=== PATIENT | female | born 1975 | race Two or more races ===

== ENCOUNTER 2018-10-20 06:04 | Inpatient (IN) | payer OTHER ==
[2018-10-19 08:02] VITALS: BMI 27.3
[2018-10-20 06:35] LABS: URINE APPEARANCE SLCLOUDY; URINE BILIRUBIN NEGATIVE (<2.0 mg/dL); URINE COLOR YELLOW; URINE GLUCOSE (UA) NEGATIVE (NEGATIVE); URINE KETONE NEGATIVE (NEGATIVE); URINE LEUK ESTERASE NEGATIVE (NEGATIVE); URINE NITRITE NEGATIVE (NEGATIVE); URINE PROTEIN NEGATIVE (NEGATIVE); URINE UROBILINOGEN NEGATIVE mg/dL (0.2-1.0)
[2018-10-20] MEDS ORDERED: PROPOFOL 20 ML ONE (07:31)
[2018-10-20] MEDS ORDERED: ROCURONIUM BROMIDE 50 MG/5 ML VIAL ONE ×3 (07:31→10:57)
[2018-10-20] MEDS ORDERED: SUCCINYLCHOLINE CHLORIDE 200 MG/10 ML VIAL ONE (07:31)
[2018-10-20] MEDS ORDERED: MIDAZOLAM HCL 2 MG/2 ML SINGLE DOSE VIAL ONE (07:33)
--- NOTE | 2018-10-20 07:57 | HP ---
History & Physical Update - History History: No Change - Physical Physical: No Change - Assessment Assessment: No Change - Plan Plan: No Change (NO changes since visit on 10/14/18)
[2018-10-20] MEDS ORDERED: morphine SULFATE/Preservative Free 0.5 MG/ML (1cc Syringe) ONE (08:02)
[2018-10-20] MEDS ORDERED: LIDOCAINE 1%-EPI 1:100,000 30 ML MDV IJ ONE (08:03)
[2018-10-20] MEDS ORDERED: THROMBIN (BOVINE) 5,000 UNIT VIAL TP ONE ×2 (08:03→09:23)
[2018-10-20] MEDS ORDERED: GENTAMICIN SO4 80 MG/2 ML VIAL ONE (08:03)
[2018-10-20] MEDS ORDERED: DESFLURANE GAS 240 ML BOTTLE IH ONE (08:11)
[2018-10-20] MEDS ORDERED: ceFAZolin SODIUM 1 GM VIAL IVPB ONE (08:50)
[2018-10-20] MEDS ORDERED: VANCOMYCIN 1,000 MG VIAL (RESTRICTED TO ID ONLY) IVPB ONE ×2 (09:00→09:23)
[2018-10-20] MEDS ORDERED: LIDOCAINE 1%/EPI 1:100000 (50 ML MULTI DOSE VIAL) NR ONE (09:03)
[2018-10-20] MEDS ORDERED: GELATIN, ABSORBABLE 12-7MM EACH SPONGE TP ONE (09:23)
[2018-10-20] MEDS ORDERED: BACITRACIN 50,000 UNITS VIAL TP ONE ×2 (09:23)
[2018-10-20] MEDS ORDERED: HYDROGEN PEROXIDE 473 ML PO ONE (09:23)
[2018-10-20] MEDS ORDERED: GENTAMICIN SO4 80 MG/2 ML VIAL IVPB ONE (09:23)
[2018-10-20] MEDS ORDERED: VANCOMYCIN 1,000 MG VIAL (RESTRICTED TO ID ONLY) ONE (09:36)
[2018-10-20] MEDS ORDERED: fentaNYL CITRATE 250 MCG/5 ML VIAL ONE (09:58)
[2018-10-20] MEDS ORDERED: GLYCOPYRROLATE 0.2 MG/1 ML VIAL ONE ×2 (11:21)
[2018-10-20] MEDS ORDERED: NEOSTIGMINE METHYLSULFATE 0.5 MG/1 ML - 10 ML MDV ONE (11:21)
[2018-10-20] MEDS ORDERED: BUPIVACAINE LIPOSOME/PF (EXPAREL) 266 MG/20 ML VIAL NR ONE (11:26)
[2018-10-20] MEDS ORDERED: BUPIVACAINE HCL/PF (5 MG/ML) 30 ML VIAL IJ ONE (11:26)
[2018-10-20] MEDS ORDERED: oxyCODONE HCL 5 MG TABLET PO PRN ×3 (12:12→12:26)
[2018-10-20] MEDS ORDERED: ONDANSETRON 4 MG/2 ML VIAL IVPUSH PRN (12:12)
[2018-10-20] MEDS ORDERED: ACETAMINOPHEN 1000 MG/100 ML VIAL (NON FORMULARY) IVPB ONE (12:18)
[2018-10-20] MEDS ORDERED: diphenhydrAMINE HCL 25 MG CAPSULE (FP) PO PRN (12:26)
[2018-10-20] MEDS ORDERED: morphine SULFATE 4 MG/ML VIAL IVPUSH PRN (12:26)
[2018-10-20] MEDS ORDERED: ACETAMINOPHEN INJECTION 100 ML IVPB ONE (13:11)
--- NOTE | 2018-10-20 13:27 | OP ---
Operative Note - Note: Operative Date: 10/20/18 Pre-Operative Diagnosis: Lumbar instability Operation: L5-S1 Lumbar decompression, laminectomy with transpedicle approach for interbody cage and arthrodesis with L5S1 posterior fusion. Post-Operative Diagnosis: Same as Pre-op Surgeon: Nazario Humphreys Dental Service Technician: Cathryn Mendoza Anesthesiologist/RUSSIAN TEACHER: Chino Naranjo Anesthesia: General, Spinal, Local Estimated Blood Loss (mls): 250 Drains, Volume Out (mls): 80 ([place] ) Fluid Volume Replaced (mls): 1,800 Operative Report Dictated: Yes
[2018-10-20] MEDS: LACTATED RINGERS SOLUTION 1,000 ML/1,000 ML INFUS.BAG IV SCH (13:30)
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
[2018-10-20] MEDS: DOCUSATE SODIUM 100 MG CAPSULE (FP) PO SCH ×2 (17:14→21:33)
[2018-10-20] MEDS: CEFAZOLIN 1 GM/D5W 1 GM/50 ML BAG IVPB SCH (17:20)
[2018-10-20] MEDS: ONDANSETRON 4 MG/2 ML VIAL IVPUSH PRN (18:16)
[2018-10-20] MEDS: HEPARIN NA (PORCINE) 5,000 UNITS/ML 1ML VIAL SQ SCH (21:34)
[2018-10-21] MEDS: CEFAZOLIN 1 GM/D5W 1 GM/50 ML BAG IVPB SCH ×3 (00:58→19:17)
[2018-10-21] MEDS: LACTATED RINGERS SOLUTION 1,000 ML/1,000 ML INFUS.BAG IV SCH ×3 (01:00→13:09)
[2018-10-21] MEDS ORDERED: oxyCODONE HCL 5 MG TABLET ONE (04:32)
[2018-10-21] MEDS ORDERED: ACETAMINOPHEN 325 MG TABLET (FP) PO ONE (04:45)
[2018-10-21] MEDS ORDERED: oxyCODONE HCL 5 MG TABLET PO ONE (04:45)
[2018-10-21] MEDS: HEPARIN NA (PORCINE) 5,000 UNITS/ML 1ML VIAL SQ SCH ×3 (06:05→21:31)
[2018-10-21] MEDS: DOCUSATE SODIUM 100 MG CAPSULE (FP) PO SCH ×3 (06:05→21:31)
[2018-10-21 07:19] LABS: HEMATOCRIT 29.2 % (32.4-45.2); HEMOGLOBIN 9.7 GM/dL (10.7-15.3); MCH 26.2 pg (25.7-33.7); MEAN CELL VOLUME 79.2 fl (80-96); MEAN PLT VOLUME 8.8 fl (7.5-11.1); PLATELET COUNT 142 K/MM3 (134-434); RBC 3.69 M/mm3 (3.60-5.2); RDW 13.7 % (11.6-15.6); WHITE BLOOD COUNT 7.2 K/mm3 (4.0-10.0)
[2018-10-21 07:46] LABS: ANION GAP 4 MMOL/L (8-16); BLOOD UREA NITROGEN 9 mg/dL (7-18); CALCIUM 8.1 mg/dL (8.5-10.1); CHLORIDE 106 mmol/L (98-107); CO2 27 mmol/L (21-32); CREATININE 0.6 mg/dL (0.55-1.3); GLUCOSE,RANDOM 94 mg/dL (74-106); POTASSIUM 4.3 mmol/L (3.5-5.1); SODIUM 137 mmol/L (136-145)
--- NOTE | 2018-10-21 08:18 | PN ---
Progress Note, Physician Chief Complaint: s/p L5S1 decompression instrumentation under general anesthesia post op day one History of Present Illness: duramorph and safety pin assembling machine operator for post op pain control - Current Medication List Current Medications: Active Medications Diphenhydramine HCl (Benadryl -) 25 mg PO Q6H PRN PRN Reason: FOR ITCHING Docusate Sodium (Colace -) 100 mg PO TID [facility] Last Admin: 10/21/18 06:05 Dose: 100 mg Ferrous Sulfate (Feosol -) 325 mg PO DAILY [facility] Folic Acid (Folic Acid -) 1 mg PO DAILY [facility] Heparin Sodium (Porcine) (Heparin -) 5,000 unit SQ TID [facility] Last Admin: 10/21/18 06:05 Dose: 5,000 unit Hydromorphone HCl (Dilaudid Construction Plant Operator -) 0 mg KNOCKUP WORKER KNOCKUP WORKER [facility]; Protocol Stop: 10/27/18 12:19 Cefazolin Sodium (Ancef 1 Gm Premixed Ivpb -) 1 gm in 50 mls @ 100 mls/hr IVPB Q8H-IV [facility] Lactated Ringer's (Lactated Ringers Solution) 1,000 ml in 1,000 mls @ 125 mls/ hr IV ASDIR [facility] Last Admin: 10/21/18 01:00 Dose: 125 mls/hr Cefazolin Sodium (Ancef 1 Gm Premixed Ivpb -) 1 gm in 50 mls @ 100 mls/hr IVPB Q8H [facility] Stop: 10/21/18 16:59 Last Admin: 10/21/18 00:58 Dose: 100 mls/hr Ondansetron HCl (Zofran Injection) 4 mg IVPUSH Q6H PRN PRN Reason: NAUSEA Last Admin: 10/20/18 18:16 Dose: 4 mg - Objective Vital Signs: Vital Signs Temperature 98.9 F 10/21/18 06:00 Pulse Rate 70 10/21/18 06:00 Respiratory Rate 18 10/21/18 06:00 Blood Pressure 103/69 10/21/18 06:00 O2 Sat by Pulse Oximetry (%) 99 10/20/18 21:00 Constitutional: Yes: Well Nourished Cardiovascular: Yes: WNL Respiratory: Yes: WNL Gastrointestinal: Yes: WNL Labs: CBC, BMP 10/21/18 06:45 10/21/18 06:45 Assessment/Plan Patient pain controlled, will start KNOCKUP WORKER this AM, stop as soon as patient is able to tolerate PO, No nausea or vomiting this AM. No adverse effects from anesthetic. Dept of anesthesiology will continue to monitor KNOCKUP WORKER
[2018-10-21] MEDS ORDERED: morphine SULFATE 4 MG/ML VIAL IVPUSH PRN (09:00)
[2018-10-21] MEDS ORDERED: oxyCODONE HCL 5 MG TABLET PO PRN (09:00)
[2018-10-21] MEDS: FOLIC ACID 1 MG TABLET (FP) PO SCH (09:21)
[2018-10-21] MEDS: FERROUS SO4 325 MG TABLET (FP) PO SCH (09:21)
[2018-10-21] MEDS ORDERED: HYDROmorphone *PCA* 10MG/50ML DISP.SYRIN PCA ONE (09:55)
[2018-10-21] MEDS: HYDROmorphone *PCA* 10MG/50ML DISP.SYRIN PCA SCH (10:00)
--- NOTE | 2018-10-21 10:23 | PN ---
Progress Note (short form) - Note Progress Note: surgery POD #1 L5-S1 decompression and fusion patient seen and examined at bedside. Patient states her pain was controlled overnight but her pain has been worsening as the spinal is wearing off. She is tolerating her diet and denies any CP, SOB, N/V/D fever or chills. Vital Signs Temp 98.5 F 10/21/18 10:00 Pulse 76 10/21/18 10:00 Resp 18 10/21/18 10:00 BP 134/67 10/21/18 10:00 Pulse Ox 99 10/20/18 21:00 Intake & Output 10/20/18 10/20/18 10/21/18 11:59 23:59 11:59 Intake Total 0078 053 5128 Output Total 330 1160 760 Balance 1470 -685 740 Intake: IV 8895 166 5658 LACTATED RINGERS SOLUTION 1450 1,000 ml In 1,000 ml @ 125 mls/hr IV ASDIR [facility] Rx#:[id number] IVPB 50 Output: Drainage 160 60 Lower Back 130 60 Urine 80 1000 700 Geronimo 600 700 Estimated Blood Loss 250 Other: Voiding Method Indwelling Catheter Bowel Movement No CBC, BMP 10/21/18 06:45 10/21/18 06:45 PE: A&Ox3, NAD unlabored resp on RA Incision dressing c/d/i with surrounding tissue intact, no edema, or tracking erythema, no evidence of d/c. Drain securely in place at right paravetebral lumbar spine. B/L LE compartments soft, supple and non-tender with +2 DP pulses and 5/5 dorsi/ plantar flexion. Problem List - Problems (1) Status post lumbar spine operative procedure for decompression of spinal cord Assessment/Plan: POD #1 L5-S1 decompression and fusion doing well. 1) d/c geronimo 2) OOb with PT WBAT in TLSO brace 3) DVT and GI prophylaxis 4) encourage IS Evaluation and plan discussed with Dr Humphreys Code(s): Z98.890 - OTHER SPECIFIED POSTPROCEDURAL STATES
--- NOTE | 2018-10-21 13:05 | PN ---
Progress Note, Physician Chief Complaint: Lumbar Instablility S/p L5-S1 decompression and fusion History of Present Illness: Previous notes and events reviewed awake and alert NAD c/o nausea pain controlled with EXECUTIVE ASST pump - Current Medication List Current Medications: Active Medications Diphenhydramine HCl (Benadryl -) 25 mg PO Q6H PRN PRN Reason: FOR ITCHING Docusate Sodium (Colace -) 100 mg PO TID [facility] Last Admin: 10/21/18 06:05 Dose: 100 mg Ferrous Sulfate (Feosol -) 325 mg PO DAILY [facility] Last Admin: 10/21/18 09:21 Dose: 325 mg Folic Acid (Folic Acid -) 1 mg PO DAILY [facility] Last Admin: 10/21/18 09:21 Dose: 1 mg Heparin Sodium (Porcine) (Heparin -) 5,000 unit SQ TID [facility] Last Admin: 10/21/18 06:05 Dose: 5,000 unit Hydromorphone HCl (Dilaudid Gold And Silver Assayer -) 0 mg EXECUTIVE ASST EXECUTIVE ASST [facility]; Protocol Stop: 10/27/18 12:19 Cefazolin Sodium (Ancef 1 Gm Premixed Ivpb -) 1 gm in 50 mls @ 100 mls/hr IVPB Q8H-IV [facility] Last Admin: 10/21/18 09:21 Dose: 100 mls/hr Lactated Ringer's (Lactated Ringers Solution) 1,000 ml in 1,000 mls @ 125 mls/ hr IV ASDIR [facility] Last Admin: 10/21/18 09:23 Dose: 125 mls/hr Ondansetron HCl (Zofran Injection) 4 mg IVPUSH Q6H PRN PRN Reason: NAUSEA Last Admin: 10/20/18 18:16 Dose: 4 mg - Objective Vital Signs: Vital Signs Temperature 98.5 F 10/21/18 10:00 Pulse Rate 76 10/21/18 10:00 Respiratory Rate 18 10/21/18 10:00 Blood Pressure 134/67 10/21/18 10:00 O2 Sat by Pulse Oximetry (%) 99 10/20/18 21:00 Constitutional: Yes: No Distress, Calm Eyes: Yes: Conjunctiva Clear HENT: Yes: Atraumatic Cardiovascular: Yes: Regular Rate and Rhythm Respiratory: Yes: Regular, CTA Bilaterally Gastrointestinal: Yes: Normal Bowel Sounds, Soft, Other (non tender) Genitourinary: Yes: [place] Present Musculoskeletal: Yes: WNL Extremities: Yes: WNL Edema: No Neurological: Yes: Alert, Oriented Psychiatric: Yes: Alert, Oriented Labs: CBC, BMP 10/21/18 06:45 10/21/18 06:45 Problem List - Problems (1) Status post lumbar spine operative procedure for decompression of spinal cord Assessment/Plan: -POD#1 L5-S1 decompression and fusion with interbody cage and pedicle screws -pain management with EXECUTIVE ASST pump -incentive spirometer -O2 via NC PRN for SOB -back brace as ordered -cefazolin IV -discontinue FC Code(s): Z98.890 - OTHER SPECIFIED POSTPROCEDURAL STATES (2) Nausea Assessment/Plan: -continue with zofran Code(s): R11.0 - NAUSEA
[2018-10-21] MEDS: ONDANSETRON 4 MG/2 ML VIAL IVPUSH PRN (13:10)
[2018-10-21] MEDS ORDERED: PT OWN MED DRAWER 7, Y5N ONE (13:22)
[2018-10-22] MEDS: CEFAZOLIN 1 GM/D5W 1 GM/50 ML BAG IVPB SCH ×3 (01:52→18:15)
[2018-10-22] MEDS: HEPARIN NA (PORCINE) 5,000 UNITS/ML 1ML VIAL SQ SCH ×3 (06:06→21:39)
[2018-10-22] MEDS: DOCUSATE SODIUM 100 MG CAPSULE (FP) PO SCH ×3 (06:06→21:39)
[2018-10-22] MEDS: LACTATED RINGERS SOLUTION 1,000 ML/1,000 ML INFUS.BAG IV SCH (06:39)
--- NOTE | 2018-10-22 08:39 | PN ---
Progress Note (short form) - Note Progress Note: Patient stable c/o pain score of 5-6/10 on Dilaudid DISTRIBUTING CLERK .Will continue DISTRIBUTING CLERK today and will f/u tomorrow.
--- NOTE | 2018-10-22 08:45 | PN ---
Progress Note, Physician Chief Complaint: AWAKE ALERT EVENTS AND NOTES REVIEWED NO BM YET HAS NOT PASSED FLATUS PAIN 11/11 - Current Medication List Current Medications: Active Medications Diphenhydramine HCl (Benadryl -) 25 mg PO Q6H PRN PRN Reason: FOR ITCHING Docusate Sodium (Colace -) 100 mg PO TID [facility] Last Admin: 10/22/18 06:06 Dose: 100 mg Ferrous Sulfate (Feosol -) 325 mg PO DAILY [facility] Last Admin: 10/21/18 09:21 Dose: 325 mg Folic Acid (Folic Acid -) 1 mg PO DAILY [facility] Last Admin: 10/21/18 09:21 Dose: 1 mg Heparin Sodium (Porcine) (Heparin -) 5,000 unit SQ TID [facility] Last Admin: 10/22/18 06:06 Dose: 5,000 unit Hydromorphone HCl (Dilaudid Nodulizer -) 0 mg LOCK TENDER CHIEF OPERATOR LOCK TENDER CHIEF OPERATOR [facility]; Protocol Stop: 10/27/18 12:19 Last Admin: 10/21/18 10:00 Dose: 10 mg Cefazolin Sodium (Ancef 1 Gm Premixed Ivpb -) 1 gm in 50 mls @ 100 mls/hr IVPB Q8H-IV [facility] Last Admin: 10/22/18 01:52 Dose: 100 mls/hr Lactated Ringer's (Lactated Ringers Solution) 1,000 ml in 1,000 mls @ 125 mls/ hr IV ASDIR [facility] Last Admin: 10/22/18 06:39 Dose: 125 mls/hr Ondansetron HCl (Zofran Injection) 4 mg IVPUSH Q6H PRN PRN Reason: NAUSEA Last Admin: 10/21/18 13:10 Dose: 4 mg - Objective Vital Signs: Vital Signs Temperature 99.8 F H 10/22/18 04:00 Pulse Rate 85 10/22/18 04:00 Respiratory Rate 18 10/22/18 04:00 Blood Pressure 117/75 10/22/18 04:00 O2 Sat by Pulse Oximetry (%) 99 10/20/18 21:00 Constitutional: Yes: Mild Distress Cardiovascular: Yes: Regular Rate and Rhythm Respiratory: Yes: WNL Gastrointestinal: Yes: Soft Genitourinary: Yes: WNL Musculoskeletal: Yes: Back Pain, Muscle Weakness Labs: CBC, BMP 10/21/18 06:45 10/21/18 06:45 Problem List - Problems (1) Constipated Code(s): K59.00 - CONSTIPATION, UNSPECIFIED (2) Nausea Code(s): R11.0 - NAUSEA (3) Status post lumbar spine operative procedure for decompression of spinal cord Code(s): Z98.890 - OTHER SPECIFIED POSTPROCEDURAL STATES Assessment/Plan OOB TO CHAIR PT EVAL APPRECIATED INCENTIVE SPIROMETRY CONSTIPATION SECONDARY TO OPIOD/PAIN MEDICATION SIDE EFFECT DC PLANNING TOMORROW NEURO SURGERY EVAL APPRECIATED
[2018-10-22] MEDS ORDERED: oxyCODONE HCL 5 MG TABLET PO PRN ×2 (09:36)
[2018-10-22 09:48] LABS: HEMATOCRIT 30.8 % (32.4-45.2); HEMOGLOBIN 10.5 GM/dL (10.7-15.3); MCH 27.3 pg (25.7-33.7); MEAN CELL VOLUME 80.3 fl (80-96); MEAN PLT VOLUME 9.3 fl (7.5-11.1); PLATELET COUNT 140 K/MM3 (134-434); RBC 3.84 M/mm3 (3.60-5.2); RDW 13.8 % (11.6-15.6); WHITE BLOOD COUNT 8.6 K/mm3 (4.0-10.0)
--- NOTE | 2018-10-22 09:56 | PN ---
Progress Note (short form) - Note Progress Note: 43yo F s/p L5/s1 PLIF seen and examined at bedside. Pt states that her pain is well controlled and she has been ambulating well with PT. Pt eating and urinating well. Pt only complains of constipation. Denies fever, chills, n/v. Last Vital Signs Temp Pulse Resp BP Pulse Ox 99.8 F H 85 18 117/75 99 10/22/18 04:00 10/22/18 04:00 10/22/18 04:00 10/22/18 04:00 10/20/18 21:00 CBC, BMP 10/22/18 08:42 PE: GeN; a&O x3 Resp: breathing comfortably Back: incision clean with no erythema or discharge, Drain in place with serosanguinous drainage Output: 60ml Ext: no weakness or numbness. Problem List - Problems (1) Status post lumbar spine operative procedure for decompression of spinal cord Assessment/Plan: Plan -will DC environmental conflict manager and transition to PO -Drain removed at bedside without incident -pt appears to be doing well, is cleared from neurosurgery standpoint for discharge Code(s): Z98.890 - OTHER SPECIFIED POSTPROCEDURAL STATES
[2018-10-22] MEDS: FERROUS SO4 325 MG TABLET (FP) PO SCH (10:48)
[2018-10-22] MEDS: FOLIC ACID 1 MG TABLET (FP) PO SCH (10:48)
[2018-10-22] MEDS: HYDROmorphone *PCA* 10MG/50ML DISP.SYRIN PCA SCH (10:53)
[2018-10-22 11:23] LABS: ALK PHOS 49 U/L (45-117); ANION GAP 6 MMOL/L (8-16); BILIRUBIN,TOTAL 0.3 mg/dL (0.2-1); BLOOD UREA NITROGEN 4 mg/dL (7-18); CALCIUM 8.3 mg/dL (8.5-10.1); CHLORIDE 101 mmol/L (98-107); CO2 27 mmol/L (21-32); CREATININE 0.5 mg/dL (0.55-1.3); GLUCOSE,RANDOM 97 mg/dL (74-106); POTASSIUM 4.1 mmol/L (3.5-5.1); SGOT/AST 6 U/L (15-37); SGPT/ALT 10 U/L (13-61); SODIUM 134 mmol/L (136-145); TOT PROT 6.2 g/dl (6.4-8.2)
[2018-10-23] MEDS: CEFAZOLIN 1 GM/D5W 1 GM/50 ML BAG IVPB SCH ×2 (01:30→09:58)
[2018-10-23] MEDS: HEPARIN NA (PORCINE) 5,000 UNITS/ML 1ML VIAL SQ SCH ×2 (06:11→13:59)
[2018-10-23] MEDS: DOCUSATE SODIUM 100 MG CAPSULE (FP) PO SCH ×2 (06:12→13:58)
[2018-10-23 07:40] LABS: HEMATOCRIT 31.5 % (32.4-45.2); HEMOGLOBIN 10.8 GM/dL (10.7-15.3); MCH 27.2 pg (25.7-33.7); MCHC 34.3 g/dl (32.0-36.0); MEAN CELL VOLUME 79.3 fl (80-96); MEAN PLT VOLUME 9.4 fl (7.5-11.1); PLATELET COUNT 160 K/MM3 (134-434); RBC 3.97 M/mm3 (3.60-5.2); WHITE BLOOD COUNT 9.6 K/mm3 (4.0-10.0)
[2018-10-23 08:23] LABS: ANION GAP 6 MMOL/L (8-16); BLOOD UREA NITROGEN 4 mg/dL (7-18); CALCIUM 8.6 mg/dL (8.5-10.1); CHLORIDE 102 mmol/L (98-107); CO2 25 mmol/L (21-32); CREATININE 0.4 mg/dL (0.55-1.3); GLUCOSE,RANDOM 99 mg/dL (74-106); MAGNESIUM 2.1 mg/dL (1.8-2.4); POTASSIUM 4.1 mmol/L (3.5-5.1); SODIUM 134 mmol/L (136-145)
--- NOTE | 2018-10-23 09:03 | PN ---
Progress Note (short form) - Note Progress Note: POD 3, s/p L5/S1 PLIF Pt seen and examined on AM rounds. States she is feeling well. Has been oob to chair, reports pain is less with walking and standing. Tolerating PO. Pain is controlled. Denies cp/sob, n/v/d, calf pain/edema. Vital Signs Temp 98.3 F 10/23/18 10:00 Pulse 92 H 10/23/18 10:00 Resp 18 10/23/18 10:00 BP 124/69 10/23/18 10:00 Pulse Ox 100 10/23/18 09:00 Intake & Output 10/22/18 10/23/18 10/23/18 23:59 11:59 23:59 Intake Total 200 380 Balance 200 380 Intake: IVPB 200 50 Oral 330 Other: Voiding Method Toilet Toilet # Unmeasured Voids Void 2 Bowel Movement Yes No # Bowel Movements 1 CBC, BMP 10/23/18 06:30 10/23/18 06:30 PE: GeN: a&O x3 sitting up in chair Resp: breathing comfortably Back:Dressing c/d/i Neuro: 5/5 b/l le dorsi/plantatflexion, knee flex/ext, hip flexion. SILT b/l A/P: 43 y/o F w/ PMHx lower back pain/lumbar instability, now POD 3, s/p L5/S1 PLIF. -Doing well this AM, Afebrile, VSS. -Plan for d/c later today
[2018-10-23] MEDS: FERROUS SO4 325 MG TABLET (FP) PO SCH (09:58)
[2018-10-23] MEDS: FOLIC ACID 1 MG TABLET (FP) PO SCH (09:58)
[2018-10-23 12:27] VITALS: BP 124/69; PULSE 92; TEMP 98.3
--- NOTE | 2018-10-23 14:59 | DS ---
Physical Examination Vital Signs: Vital Signs Temperature 98.3 F 10/23/18 10:00 Pulse Rate 92 H 10/23/18 10:00 Respiratory Rate 18 10/23/18 10:00 Blood Pressure 124/69 10/23/18 10:00 O2 Sat by Pulse Oximetry (%) 100 10/23/18 09:00 Constitutional: Yes: No Distress Eyes: Yes: WNL HENT: Yes: WNL Neck: Yes: WNL Cardiovascular: Yes: Bruit Respiratory: Yes: WNL Gastrointestinal: Yes: WNL Renal/: Yes: WNL Musculoskeletal: Yes: Back Pain Edema: No Labs: CBC, BMP 10/23/18 06:30 10/23/18 06:30 Discharge Summary Reason For Visit: LUMBAR INSTABILITY Current Active Problems Constipated (Acute) Nausea (Acute) Status post lumbar spine operative procedure for decompression of spinal cord ( Acute) Procedures: Principal: DECOMPRESSION LUMBAR SURGERY Condition: Fair - Instructions Diet, Activity, Other Instructions: Post Operative Instructions Physical Activity Resume your normal everyday activity as tolerated. No heavy lifting or exercise until seen by your surgeon. You may walk unlimited amounts and climb stairs. You may resume driving the car when you feel safe and comfortable behind the wheel and you are no longer wearing your brace. Do not operate a vehicle while taking narcotic medication. Brace If you had back surgery, wear TLSO Brace whenever out of bed. May remove to sleep and shower. Wound Care Keep your incision clean, dry and covered at all times. Apply an occlusive dressing (Saran wrap or Tegaderm) when showering to avoid getting your incision wet. Do not submerge incision or apply ointments or creams. The tanisha will be removed in the office in 10-14 days post-op. Diet There are no dietary restrictions. Eat healthy, high-fiber foods. Drink 6-8 glasses of liquid each day. This will assist in keeping your bowels regular. Pain Management You may take Tylenol or acetaminophen. Any pain prescription medication ordered should be taken as prescribed for moderate to severe pain. Call Dr Niño for any of the following: Severe pain not relieved by medication Fever of 101 or higher Excessive bleeding or drainage on dressing Inability to urinate Any chest pain or shortness of breath, seek Emergency Care. Call the office to confirm a post-operative appointment for 2-3 weeks post-op Nazario Humphreys MD [facility] [address] [place] [address] Disposition: HOME - Home Medications Comprehensive Discharge Medication List: Ambulatory Orders Cyclobenzaprine HCl [Flexeril -] 10 mg PO HS #30 tablet 10/23/18 Diphenhydramine HCl [Benadryl Capsule -] 25 mg PO Q6H PRN #30 capsule 10/23/18 Docusate Sodium [Colace -] 100 mg PO TID #90 capsule 10/23/18 Ferrous Sulfate [Feosol] 325 mg PO DAILY #30 ud 10/23/18 Folic Acid - 1 mg PO DAILY #30 tablet 10/23/18 Ibuprofen 800 mg PO BID #60 tablet 10/23/18 Ibuprofen [Ibu] 800 mg PO BID #60 tablet 10/23/18
[2018-10-23] MEDS: HYDROmorphone *PCA* 10MG/50ML DISP.SYRIN PCA SCH (16:28)
--- NOTE | 2018-10-29 15:54 | SURG ---
Surgery Cadd Manager Note Cadd Manager: Cathryn Mendoza PA-C Date of Service: 10/29/18 Diagnosis: L5-S1 Disc herniation and instability Procedure: 1) Bilateral L5S1 Laminectomy 2) L5S1 Transpedicle approach 3) Posterior osteotomy L5 4) Posterior osteotomy S1 5) Fluroscopy 6) microdissection 7) Interbody and posterior/lateral arthrodesis L5S1 8) L5S1 posterior instrumentation ( Technically challenging) 9) local autograft 10) Interbody cage L5S1 11) Bilateral soft tissue advancement flaps (50cm^2) I was present for the entirety of the operative procedure. For further detail, please refer to operative report.
== END 2018-10-23 18:23 | disposition home or self-care (01) | DRG 455 ==
LOC: JSAMEDAYSX 06:04 → J8W 16:31
PROVIDERS: ADMIT Neurological Surgery; ATTEND Family Medicine
PROC: 0SG3071 Fusion of Lumbosacral Joint with Autologous Tissue Substitute, Posterior Approach, Posterior Column, Open Approach (ICD-10-PCS; 2018-10-20)
PROC: 00NY0ZZ Release Lumbar Spinal Cord, Open Approach (ICD-10-PCS; 2018-10-20)
PROC: B01BZZZ Fluoroscopy of Spinal Cord (ICD-10-PCS; 2018-10-20)
PROC: 0JX70ZB Transfer Back Subcutaneous Tissue and Fascia with Skin and Subcutaneous Tissue, Open Approach (ICD-10-PCS; 2018-10-20)
PROC: 0SG30AJ Fusion of Lumbosacral Joint with Interbody Fusion Device, Posterior Approach, Anterior Column, Open Approach (ICD-10-PCS; principal; 2018-10-20 08:00)
DX: M51.27 Other intervertebral disc displacement, lumbosacral region (principal); M53.2X7 Spinal instabilities, lumbosacral region; K59.00 Constipation, unspecified; R11.0 Nausea
CPT/HCPCS: 36415; 72131-TC; 80048; 80053; 81003; 83735; 84702; 85027; 86850; 86900; 86901; 94760; 97116-GP; 97161-GP; J0131; J1644